=== PATIENT | female | born 1980 | race Hispanic/Latino ===

== ENCOUNTER 2022-06-10 12:52 | Emergency (ER) | payer OTHER ==
--- OUTSIDE RECORDS SUMMARY | 2022-06-10 12:55 | XMS REPORT | Continuity of Care Document ---
:[address] [facility] t Address [address] [place] [address] Care Team Providers Name Role Phone Anai Tapia MD Attending Clinician Provider, [facility] Attending Clinician Unavailable Mary Morejon PA-C Attending Clinician MARY MOREJON Attending Clinician Unavailable ESTEBAN Attending Clinician Unavailable ESTEBAN Admitting Clinician Unavailable Payers Payer Name Policy Type Policy Number Effective Date Expiration Date Jhonatan cid [place] [employer] [id number] 2020 HEALTH 00:00:00 Problems Condition Condition Condition Status Onset Resolution Last Treating Co mments Source Name Details Category Date Date Treatment Clinician Date No known No known Disease Unive rs active active ity of problems problems [facility] Allergies, Adverse Reactions, Alerts Allergy Allergy Status Severity Reaction(s) Onset Inactive Treating Comm ents Source Name Type Date Date Clinician Penicill Propensi Active Anaphylaxis 2019-06 U nivers ins ty to 06-27 ity of adverse 00:00: [place] reaction 00 Medical s Branch PENICILL Drug Active Anaphylaxis 2019-06 Uni vers INS Class 06-27 ity of 00:00: [place] 00 Medical Branch NO KNOWN Drug Active Univers ALLERGIE Class ity of S [facility] Social History Social Habit Start Date Stop Date Quantity Comments Source Exposure to SARS-CoV-2 Not sure [facility] [place] [facility] [place] [facility] Sex Assigned At Uni versity [facility] Smoking Status Start Date Stop Date Source Unknown if ever smoked [facility] Medications Ordered Filled Start Stop Current Ordering Indication Dosage Frequency Signature Comments Components Source Medication Medication Date Date Medication? Clinician (SIG) Name Name levoFLOXaci 2019-06 500mg 500 mg, U nivers n 1-09 11-09 Oral, ity of (LEVAQUIN) 06:15: 05:23 ONCE, 1 [place] as tablet 500 00 :00 dose, Mon Medi agatha mg 04/30/20 at Branch 0015, BELINDA
Re ason for Anti-Infec tive: Documented Infection< br>Documen ave Infection Site: Urine
D uration of Therapy: Other (see Comments) ketorolac 2019-06- No 30mg 30 mg, Unive rs (TORADOL) 06-30 Slow IV ity of injection 06:15: 05:15 Push, [place] 30 mg 00 :00 ONCE, 1 Medical dose, [facility] Branch 04/30/20 at 0015, Routine
produce team member approving Restricted medication : ANAI TAPIA metoclopram 2019-06- No 10mg 10 mg, Uni vers jie HCl 06-30 Slow IV ity of (REGLAN) 06:15: 05:16 Push, [place] injection 00 :00 ONCE, 1 Medical 10 mg dose, [facility] 04/30/20 at 0015, BELINDA acetaminoph 2019-06 2020- No 1000mg 1,000 mg, Univers en 06-30 Oral, ity of (TYLENOL) 05:30: 04:33 ONCE, 1 [place] tablet 00 :00 dose, [facility] 1,000 mg 04/29/20 at [facility] h 2330, BELINDA ondansetron 2019-06 2020- No 4mg 4 mg, Slow Univers (ZOFRAN 06-30 IV Push, ity of (PF)) 05:30: 04:29 ONCE, 1 [place] injection 4 00 :00 dose, [facility] ical mg 04/29/20 at Branch 2330, BELINDA NaCl 0.9% 2019-06 Yes 1000mL at 999 Univ ers (NS) IV 1-09 mL/hr, ity of infusion 04:45: Intravenou Wilber as 1,000 mL 00 s, Medical CONTINUOUS Branch , Starting 04/29/20 at 2245, Until Discontinu ed, Routine levoFLOXaci 2019-06 Yes [id number] 500mg Take 1 Univers n 1-08 tablet by ity of (LEVAQUIN) 00:00: mouth [place] 500 mg 00 every 24 Medical tablet (twenty-fo Branch ur) hours. ibuprofen 2019-06 Yes [id number] 800mg Take 1 Univers 800 mg 1-08 tablet by ity of tablet 00:00: mouth [place] 00 every 8 Medical (eight) Branch hours as needed for Pain (scale 4-6) or Temp > 38.5 C. No known No Univers medications ity of [facility] Vital Signs Vital Name Observation Time Observation Value Comments Source Systolic blood 2020-04-30 06:10:00 96 mm[Hg] Univer sity of pressure [facility] Branch Diastolic blood 2020-04-30 06:10:00 61 mm[Hg] Unive rsity of pressure [facility] Heart rate 2020-04-30 06:10:00 69 /min Universi ty of [facility] Respiratory rate 2020-04-30 06:10:00 19 /min Univ ersity of [facility] Oxygen saturation in 2020-04-30 06:10:00 98 /min University of Arterial blood by [facility] Pulse oximetry Branch Body temperature 2020-04-30 05:18:00 37.33 Miri Univ ersity of [facility] Body height 2020-04-30 02:39:00 165.1 cm Universi ty of [facility] Body weight 2020-04-30 02:39:00 58.968 kg Universi ty of [facility] Branch BMI 2020-04-30 02:39:00 21.63 kg/m2 Universi ty of [facility] Branch Systolic blood 2020-04-28 01:41:00 107 mm[Hg] Univer sity of [facility] Diastolic blood 2020-04-28 01:41:00 64 mm[Hg] Unive rsity of [facility] Heart rate 2020-04-28 01:41:00 93 /min Universi ty of [facility] Body temperature 2020-04-28 01:41:00 38 Miri Univ ersity of [facility] Branch Respiratory rate 2020-04-28 01:41:00 17 /min Univ ersity of [facility] Body height 2020-04-28 01:41:00 165.1 cm Universi ty of [facility] Body weight 2020-04-28 01:41:00 58.968 kg Universi ty of [facility] Branch BMI 2020-04-28 01:41:00 21.63 kg/m2 Universi ty of [facility] Oxygen saturation in 2020-04-28 01:41:00 96 /min University of Arterial blood by [facility] Pulse oximetry Branch Procedures Procedure Date / Time Performed Performing Clinician Sourc e URINALYSIS 2020-04-30 04:18:00 Anai Tapia [facility] COMP. METABOLIC PANEL 2020-04-30 04:16:00 Anai Tapia [facility] ([id number]) [facility] CBC WITH DIFF 2020-04-30 04:16:00 Anai Tapia [facility] POCT FLU A AND B 2020-04-28 01:48:00 Darleen [facility] (MOLECULAR) [facility] COVID-19 (MOLECULAR 2020-04-28 01:45:00 Darleen [facility] TESTING [facility] NUCLEIC ACID AMPLIFICATION) POCT GRP A STREP 2020-04-28 01:42:00 Darleen [facility] (MOLECULAR) [facility] Encounters Start End Encounter Admission Attending Care Care Encounter Source Date/Time Date/Time Type Type Clinicians Facility Department ID 2021-04-20 Emergency [facility] [id number] Univers 03:57:04 [place] [facility] 2020-04-29 2020-04-30 Emergency [facility] [id number] Univers 20:43:00 00:21:00 Anai Alicia [id number] ity of [place] [id number] [facility] [id number] [facility] 084 Branch 2020-04-27 2020-04-27 Urgent Provider, [place] [facility] [id number] Univers 19:40:32 19:58:01 Care Darleen [facility] [id number] ity [facility] [id number] [facility] [id number] Ne dical nal [address] Branch [address] 2020-04-27 2020-04-27 Outpatient R DARLEEN [facility] [id number] Univers 19:40:00 19:40:00 [facility] 2020-01-09 2020-01-09 Outpatient FERGUSON_ROBI GRIGGS [id number] [place] 12:29:00 12:29:00 [place] [id number] da [facility] Program Results Test Description Test Time Test Comments Results Result Comments Source COMP. METABOLIC PANEL (69935) 2020-04-30 05:20:00 Test Item Value Reference Range Interpretation Comme nts NA (test code = 6046607799) 134 mmol/L 135-145 L K (test code = 0836980146) 3.9 mmol/L 3.5-5 CL (test code = 0731873358) 101 mmol/L 98-108 CO2 TOTAL (test code = 7042825234) 25 mmol/L 23-31 AGAP (test code = 3009206912) 2-16 BUN (test code = 6494866163) 17 mg/dL 7-23 GLUCOSE (test code = 9197226507) 87 mg/dL 70-110 CREATININE (test code = 0.66 mg/dL 0.5-1.04 0260745727) TOTAL BILI (test code = 0.5 mg/dL 0.1-1.2 1869270537) CALCIUM (test code = 3657143717) 9.5 mg/dL 8.6-10.6 T PROTEIN (test code = 9007081457) 7.6 g/dL 6.3-8.2 ALBUMIN (test code = 5234269826) 4.5 g/dL 3.5-5 ALK PHOS (test code = 9103356927) 57 U/L 34-122 ALTv (test code = 1742-6) 7 U/L 5-35 AST(SGOT) (test code = 0312489082) 18 U/L 13-40 eGFR Calculation (Non- mL/min/1.73m2 [place]ayan) (test code = 2490782936) eGFR Calculation ( mL/min/1.73m2 [place]) (test code = 7813037644) ELSA (test code = ELSA) Association of Glomerular Filtration Rate (GFR) and Staging of Kidney Disease* + +-------- + ------+| GFR (mL/min/1.73 m2) ?| With Kidney Damage ?| ?Without Kidney Damage+ +-- + +| ?>90 ?| ?Stage one ?| ? Normal ?+ +------- + -------+| ?60-89 ?| ?Stage two ?| ? Decreased GFR ? + +-------- + ------+| ?30-59 ?| ?Stage three ?| ? Stage three ? + +-------- + ------+| ?15-29 ?| ?Stage four ? | ? Stage four ?+ +------- + -------+| ?<15 (or dialysis) ? ?| ?Stage five ? | ? Stage five ?+ +------- + -------+ *Each stage assumes the associated GFR level has been in effect for at least three months. ?Stages 1 to 5, with or without kidney disease, indicate chronic kidney disease. Notes: Determination of stages one and two (with eGFR >59mL/min/1.73 m2) requires estimation of kidney damage for at least three months as defined by structural or functional abnormalities of the kidney, manifested by either:Pathological abnormalities or Markers of kidney damage (including abnormalities in the composition of the blood or urine or abnormalities in imaging tests). Lab Interpretation (test code = Abnormal 62654-3) [facility] Test Item Value Reference Range Interpretation Comments APPEARANCE (test code = Hazy Clear A 6225388628) COLOR (test code = Yellow Yellow 7434952793) PH (test code = 4.8-8.0 8673586818) SP GRAVITY (test code = 1.003-1.030 7051148635) GLU U QUAL (test code = Normal Normal 6010798330) BLOOD (test code = 2+ Negative A 9644886407) KETONES (test code = Negative Negative 5073979002) PROTEIN (test code = Negative Negative 2887-8) UROBILIN (test code = 2.0 mg/dL Normal A 1531961669) BILIRUBIN (test code = Negative Negative 3277817015) NITRITE (test code = Negative Negative 3606511689) LEUK HAIR (test code = 75/uL Negative A 2736998127) RBC/HPF (test code = See_Comment H [Autom ated message] 1431903162) The system [employer] generated this result transmit ave reference range : 0 - 3 HPF. The refe rence range was not u sed to interpret th is result as normal/abnormal . WBC/HPF (test code = See_Comment H [Autom ated message] 7113699941) The system whic h generated this result transmit ave reference range : 0 - 5 HPF. The refe rence range was not u sed to interpret th is result as normal/abnormal . BACTERIA (test code = Many Negative A 1316484964) MUCOUS (test code = Moderate Negative LPF A 2702252660) SQ EPITH (test code = HPF 5570188464) Lab Interpretation (test Abnormal code = 87972-2) [facility] WITH [id number] 04:40:00 Test Item Value Reference Range Interpretation Comments WBC (test code = See_Comment [Automated 6690-2) message] The sy stem which generated this result transmitted reference range : 4.30 - 11.10 10*3/?L. The reference range was not used to interpret this result as normal/abnormal . RBC (test code = See_Comment [Automated 789-8) message] The sy stem which generated this result transmitted reference range : 3.93 - 5.25 10*6/?L. The reference range was not used to interpret this result as normal/abnormal . HGB (test code = 12.1 g/dL 11.6-15 718-7) HCT (test code = 36.7 % 35.7-45.2 4544-3) MCV (test code = 88.4 fL 80.6-95.5 787-2) MCH (test code = 29.2 pg 25.9-32.8 785-6) MCHC (test code = 33.0 g/dL 31.6-35.1 786-4) RDW-SD (test code = 38.7 fL 39-49.9 L 85023-1) RDW-CV (test code = 11.9 % 12-15.5 L 788-0) PLT (test code = See_Comment H [Automated 777-3) message] The sy stem which generated this result transmitted reference range : 166 - 358 10*3/ ?L. The reference r daniel was not used to interpret this result as normal/abnormal . MPV (test code = 10.0 fL 9.5-12.9 62397-0) NRBC/100 WBC (test See_Comment [Automat ed code = 9731247585) message] The system which generated this result transmitted reference range : 0.0 - 10.0 /100 WBCs. The refer ence range was not u sed to interpret th is result as normal/abnormal . NRBC x10^3 (test code <0.01 See_Comment [Auto mated = 1718482653) message] The s ystem which generated this result transmitted reference range : 10*3/?L. The reference range was not used to interpret this result as normal/abnormal . GRAN MAT (NEUT) % 65.5 % (test code = 770-8) IMM GRAN % (test code 0.30 % = 2759282673) LYMPH % (test code = 22.2 % 736-9) MONO % (test code = 7.8 % 5905-5) EOS % (test code = 3.5 % 713-8) BASO % (test code = 0.7 % 706-2) GRAN MAT x10^3(ANC) 5.86 10*3/uL 1.88-7.09 (test code = 4307704326) IMM GRAN x10^3 (test 0.03 10*3/uL 0-0.06 code = 4137612549) LYMPH x10^3 (test code 1.99 10*3/uL 1.32-3.29 = 731-0) MONO x10^3 (test code 0.70 10*3/uL 0.33-0.92 = 742-7) EOS x10^3 (test code = 0.31 10*3/uL 0.03-0.39 711-2) BASO x10^3 (test code 0.06 10*3/uL 0.01-0.07 = 704-7) Lab Interpretation Abnormal (test code = 83488-1) [facility] NUCLEIC ACID AMPLIFICATION)2020-04-29 10:44:00 Test Item Value Reference Range Interpretation Comments SARS-CoV-2 NAAT (test Not Detected Not Detected code = 34779-9) ELSA (test code = ELSA) [employer] SARS-CoV-2 Assay is a nucleic acid amplification test intended for the qualitative detection of RNA from SARS-CoV-2 from nasopharyngeal (MIRROR [employer]ICATION SUPERVISOR) specimens. ?It is used under Emergency Use Authorization (EUA) by FDA. A positive result is indicative of the presence of SARS-CoV-2 RNA. ?Clinical correlation with patient history and other diagnostic information is necessary to determine patient infection status. A negative (Not Detected) result does not preclude SARS-CoV-2 infection. ?Clinical correlation with patient history and other diagnostic information should be used in patient management decisions. Invalid: Unable to generate a valid test result on this specimen. ?Please submit a new specimen for repeat testing if clinically indicated. Lab Interpretation Normal (test code = 71087-7) [facility] FLU A AND B (MOLECULAR)2020-04-28 01:58:00 Test Item Value Reference Range Interpretation Comments POCT INFLUENZA A (test code = negative Negative - Negative 3840) POCT INFLUENZA B (test code = negative Negative - Negative 3841) Lab Interpretation (test code = Normal 45757-2) [facility] GRP A STREP (MOLECULAR)2020-04-28 01:52:00 Test Item Value Reference Range Interpretation Comments POCT GP A STREP (test code = negative Negative - Negative 67676-4) Lab Interpretation (test code = Normal 78601-5) [facility]"
--- NOTE | 2022-06-10 13:56 | RAD REPORT ---
EXAM DESCRIPTION: RAD - Foot Right 3 View - 06/10/2022 1:45 pm CLINICAL HISTORY: PAIN COMPARISON: No comparisons FINDINGS: Slight fracture is seen involving the distal aspect of the proximal phalanx of the second toe. Mild surrounding soft tissue swelling.
--- NOTE | 2022-06-10 14:12 | ER ---
Nurse's Notes [facility] Name: Hilaria Mendosa Age: 42 yrs Sex: Female : 1980 Arrival Date: 06/10/2022 Time: 13:07 Bed 15 Private MD: Diagnosis: Nondisplaced fracture of proximal phalanx of right lesser toe(s), initial encounter for closed fracture Presentation: 06/10 13:20 Chief complaint: Patient states: stubbed her 2nd toe on right foot today , hit on a iw granite step. Coronavirus screen: At this time, the client does not indicate any symptoms associated with coronavirus-19. Ebola Screen: Patient negative for fever greater than or equal to 101.5 degrees Fahrenheit, and additional compatible Ebola Virus Disease symptoms Patient denies exposure to infectious person. Patient denies travel to an Ebola-affected area in the 21 days before illness onset. No symptoms or risks identified at this time. Initial Sepsis Screen: Does the patient meet any 2 criteria? No. Patient's initial sepsis screen is negative. Does the patient have a suspected source of infection? No. Patient's initial sepsis screen is negative. Risk Assessment: Do you want to hurt yourself or someone else? Patient reports no desire to harm self or others. Onset of symptoms was June 10, 2022. 13:20 Method Of Arrival: Ambulatory iw 13:20 Acuity: BHANU 5 iw 13:20 Acuity: BHANU 4 iw Triage Assessment: 13:39 General: Appears in no apparent distress. comfortable, Behavior is calm, cooperative, bp appropriate for age. Pain: Complains of pain in right foot. EENT: No deficits noted. Neuro: No deficits noted. Cardiovascular: No deficits noted. Respiratory: No deficits noted. GI: No signs and/or symptoms were reported involving the gastrointestinal system. : No signs and/or symptoms were reported regarding the genitourinary system. Derm: No deficits noted. Musculoskeletal: Reports pain in right foot. Historical: - Allergies: 13:22 PENICILLINS; iw - Home Meds: 13:22 None [Active]; iw - PMHx: 13:22 None; iw - PSHx: 13:22 section; ex lap; iw - Immunization history:: Adult Immunizations up to date. - Social history:: Smoking status: Patient denies any tobacco usage or history of. Screenin:41 [facility] ED Fall Risk Assessment (Adult) History of falling in the last 3 months, bp including since admission No falls in past 3 months (0 pts). Humpty Dumpty Scale Fall Assessment Tool (age< 18yrs) Age 13 years and above (1 pt). Abuse screen: Denies threats or abuse. Denies injuries from another. Nutritional screening: No deficits noted. Tuberculosis screening: No symptoms or risk factors identified. Fall Risk Assessment: 13:41 General: SEE TRIAGE NOTE. bp 14:36 Reassessment: PT DC HOME AMBULATORY. bp Vital Signs: 13:20 BP 107 / 64; Pulse 84; Resp 16; Temp 98.1; Pulse Ox 100% on R/A; iw ED Course: 13:07 Patient arrived in ED. jm9 13:10 Shakira Andres FNP-C is PHCP. kb 13:10 Dinesh Ball DO is Attending Physician. kb 13:22 Triage completed. iw 13:23 Arm band placed on. iw 13:24 Avery Abbasi, RN is Primary Nurse. bp 13:42 Patient has correct armband on for positive identification. Bed in low position. Call bp light in reach. Side rails up X2. 13:47 Foot Right 3 View XRAY In Process Unspecified. EDMS 14:36 No provider procedures requiring assistance completed. Patient did not have IV access bp during this emergency room visit. Saud tape right second toe. Administered Medications: No medications were administered Medication: 13:41 VIS not applicable for this client. bp Outcome: 14:12 Discharge ordered by MD. kb 14:36 Discharged to home ambulatory. bp 14:36 Condition: stable 14:36 Discharge instructions given to patient, Instructed on discharge instructions, follow up and referral plans. Demonstrated understanding of instructions, follow-up care. 14:37 Patient left the ED. bp Signatures: Dispatcher [employer] EDMS Shakira Andres FNP-C FNP-Ckb Williams, Irene RN Avery Camacho, RN RN Luh Aleman jm9 Corrections: (The following items were deleted from the chart) 13:23 13:20 Pulse 84bpm; Resp 16bpm; Pulse Ox 100% RA; Temp 98.1F; iw iw
--- NOTE | 2022-06-10 14:12 | EDPHYS ---
Physician Documentation [facility] Name: Hilaria Mendosa Age: 42 yrs Sex: Female : 1980 Arrival Date: 06/10/2022 Time: 13:07 Bed 15 Private MD: ED Physician Dinesh Ball HPI: 06/10 14:10 This 42 yrs old Female presents to ER via Ambulatory with complaints of Toe kb Injury. 14:10 The patient presents with an abrasion, an injury, pain, swelling, tenderness. The kb complaints affect the right second toe. Context: The problem was sustained at home, resulted from the patient kicking, step, the patient can fully bear weight, the patient is able to ambulate. Onset: The symptoms/episode began/occurred just prior to arrival. Modifying factors: The symptoms are alleviated by nothing, the symptoms are aggravated by movement. Associated signs and symptoms: Pertinent positives: swelling, Pertinent negatives: calf tenderness, fever, nausea, numbness, rash, tingling, vomiting, warmth, weakness. Severity of symptoms: At their worst the symptoms were mild, in the emergency department the symptoms are unchanged. The patient has not experienced similar symptoms in the past. The patient has not recently seen a physician. Historical: - Allergies: 13:22 PENICILLINS; iw - Home Meds: 13:22 None [Active]; iw - PMHx: 13:22 None; iw - PSHx: 13:22 section; ex lap; iw - Immunization history:: Adult Immunizations up to date. - Social history:: Smoking status: Patient denies any tobacco usage or history of. ROS: 14:08 Constitutional: Negative for fever, chills, and weight loss. kb 14:08 MS/extremity: Positive for abrasion, erythema, pain, swelling, tenderness, of the right second toe. 14:08 All other systems are negative. Exam: 14:08 Constitutional: This is a well developed, well nourished patient who is awake, alert, kb and in no acute distress. Head/Face: Normocephalic, atraumatic. ENT: Moist Mucous membranes Cardiovascular: Regular rate and rhythm with a normal S1 and S2. No gallops, murmurs, or rubs. No pulse deficits. Respiratory: Respirations even and unlabored. No increased work of breathing. Talking in full sentences Abdomen/GI: Soft, non-tender. No distention Skin: Warm, dry with normal turgor. Normal color. Neuro: Awake and alert, GCS 15, oriented to person, place, time, and situation. Moves all extremities. Normal gait. Psych: Awake, alert, with orientation to person, place and time. Behavior, mood, and affect are within normal limits. 14:08 Musculoskeletal/extremity: Extremities: grossly normal except: noted in the right second toe: abrasion, erythema, pain, swelling, tenderness, ROM: limited active range of motion due to pain, in the right second toe, Circulation is intact in all extremities. Sensation intact. Weight bearing: able to fully bear weight. Vital Signs: 13:20 BP 107 / 64; Pulse 84; Resp 16; Temp 98.1; Pulse Ox 100% on R/A; iw MDM: 13:10 Patient medically screened. kb 14:10 Data reviewed: vital signs, nurses notes. Data interpreted: Pulse oximetry: on room air kb is 100 %. Interpretation: normal. Counseling: I had a detailed discussion with the patient and/or guardian regarding: the historical points, exam findings, and any diagnostic results supporting the discharge/admit diagnosis, radiology results, the need for outpatient follow up, a orthopedic surgeon, to return to the emergency department if symptoms worsen or persist or if there are any questions or concerns that arise at home. 06/10 13:15 Order name: Foot Right 3 View XRAY; Complete Time: 14:00 kb 06/10 14:01 Order name: [facility]. Order: to tape ; Complete Time: 14:27 kb Administered Medications: No medications were administered Disposition: 16:19 Co-signature as Attending Physician, Dinesh MEHTA was immediately available onsite ms3 in the emergency department for consultation in the care of the patient. Disposition Summary: 06/10/22 14:12 Discharge Ordered Location: Home Condition: Stable Diagnosis - Nondisplaced fracture of proximal phalanx of right lesser toe(s), initial encounter kb for closed fracture Followup: kb - With: Emergency Department - When: As needed - Reason: Worsening of condition Followup: kb - With: Private Physician - When: 2 - 3 days - Reason: Recheck today's complaints, Continuance of care, Re-evaluation by your physician Discharge Instructions: - Discharge Summary Sheet kb - Toe Fracture, [id number] kb Forms: - Medication Reconciliation Form kb - Thank You Letter kb - Work release form kb - Antibiotic Education kb - Prescription Opioid Use kb Signatures: Dispatcher [employer] EDShakira Curran, UVALDOC DWAYNE-Carey Galicia, RN Avery Camacho RN RN bp Sims, Marcus, DO ms3
[2022-06-10 14:42] VITALS: BP 107/64; TEMP 98.1; O2SAT 100
== END 2022-06-10 14:37 | disposition home or self-care (01) ==
LOC: ER 12:52
DX: S92.514A Nondisplaced fracture of proximal phalanx of right lesser toe(s), initial encounter for closed fracture (principal); Z88.0 Allergy status to penicillin
CPT/HCPCS: 99283

== ENCOUNTER 2022-08-19 22:16 | Emergency (ER) | payer OTHER ==
--- OUTSIDE RECORDS SUMMARY | 2022-08-19 22:19 | XMS REPORT | Continuity of Care Document ---
:1980 Author Organization [facility] Address [address] [facility] [address] [place] [address] Care Team Providers Name Role Phone Anai Tapia MD Attending Clinician Provider, [facility] Attending Clinician Unavailable Mary Morejon PA-C Attending Clinician MARY MOREJON Attending Clinician Unavailable ESTEBAN Attending Clinician Unavailable MARIELOS CARRILLO Attending Clinician Unavailable ESTEBAN Admitting Clinician Unavailable MARIELOS CARRILLO Admitting Clinician Unavailable Payers Payer Name Policy Type Policy Number Effective Date Expiration Date Jhonatan [employer] [id number] 2020 HEALTH 00:00:00 Problems Condition Condition Condition Status Onset Resolution Last Treating Co mments Source Name Details Category Date Date Treatment Clinician Date No known No known Disease Unive rs active active ity of problems problems [facility] Allergies, Adverse Reactions, Alerts Allergy Allergy Status Severity Reaction(s) Onset Inactive Treating Comm ents Source Name Type Date Date Clinician Penicill Propensi Active Anaphylaxis 2019-06 U nivers ins ty to 06-27 ity of adverse 00:00: [place] reaction 00 Medical s Branch PENICILL Drug Active Anaphylaxis 2019-06 Uni vers INS Class 06 ity of 00:00: [place] 00 Medical Branch NO KNOWN Drug Active Univers ALLERGIE Class ity of S [facility] Social History Social Habit Start Date Stop Date Quantity Comments Source Exposure to SARS-CoV-2 Not sure [facility] Sex Assigned At Uni versity [facility] [place] Smoking Status Start Date Stop Date Source Unknown if ever smoked Universit y [facility] Medications Ordered Filled Start Stop Current Ordering Indication Dosage Frequency Signature Comments Components Source Medication Medication Date Date Medication? Clinician (SIG) Name Name levoFLOXaci 2020-1 2020- No 500mg 500 mg, U nivers n 06-30 Oral, ity of (LEVAQUIN) 06:15: 05:23 ONCE, [...] mg 00 :00 ONCE, 1 Medical dose, [facility] 04/30/20 at 0015, Routine
production team member approving Restricted medication : ANAI ATPIA metoclopram 2019-06- No 10mg 10 mg, Uni vers jie HCl 06-30 Slow IV ity of (REGLAN) 06:15: 05:16 Push, [place] injection 00 :00 ONCE, 1 Medical 10 mg dose, [facility] 04/30/20 at 0015, BELINDA acetaminoph 2019-06 2020- No 1000mg 1,000 mg, Univers en 06-30 Oral, ity of (TYLENOL) 05:30: 04:33 ONCE, 1 [place] tablet 00 :00 dose, [facility] 1,000 mg 04/29/20 at [facility] h 2330, BELINDA ondansetron 2019-06 2020- No [...] Until Discontinu ed, Routine levoFLOXaci 2019-06 Yes [id number] 500mg Take 1 Univers n 1-08 tablet by ity of (LEVAQUIN) 00:00: mouth [place] 500 mg 00 every 24 Medical tablet (twenty-fo Branch ur) hours. ibuprofen 2019- Yes [id number] 800mg Take 1 Univers 800 mg 1-08 tablet by ity of tablet 00:00: mouth [place] 00 every 8 Medical (eight) Branch hours as needed for Pain (scale 4-6) or Temp > 38.5 C. No known No Univers medications ity of [facility] Vital Signs Vital Name Observation Time Observation Value Comments Source Systolic blood 2020-04-30 06:10:00 96 mm[Hg] Univer sity of pressure [facility] Diastolic blood 2020-04-30 06:10:00 61 mm[Hg] Unive rsity of [facility] Heart rate 2020-04-30 06:10:00 69 /min Universi ty of [facility] Respiratory rate 2020-04-30 06:10:00 19 /min Univ ersity [facility] Oxygen saturation in 2020-04-30 06:10:00 98 /min University Arterial blood by [facility] Pulse oximetry Branch Body temperature 2020-04-30 05:18:00 37.33 Miri Univ ersity of [facility] Body height 2020-04-30 02:39:00 165.1 cm Universi ty of [facility] Body weight 2020-04-30 02:39:00 58.968 kg Universi ty of [facility] BMI 2020-04-30 02:39:00 21.63 kg/m2 Universi ty of [facility] Systolic blood 2020-04-28 01:41:00 107 mm[Hg] Univer sity of [facility] Diastolic blood 2020-04-28 01:41:00 64 mm[Hg] Unive rsity of [facility] Heart rate 2020-04-28 01:41:00 93 /min Universi ty of [facility] Body temperature 2020-04-28 01:41:00 38 Miri Univ ersity of [facility] Respiratory rate 2020-04-28 01:41:00 17 /min Univ ersity of [facility] Body height 2020-04-28 01:41:00 165.1 cm Universi ty of [facility] Body weight 2020-04-28 01:41:00 58.968 kg Universi ty of [facility] BMI 2020-04-28 01:41:00 21.63 kg/m2 [facility] Oxygen saturation in 2020-04-28 01:41:00 96 /min University Arterial blood by [facility] Pulse oximetry Branch Procedures Procedure Date / Time Performed Performing Clinician Sourrivka e URINALYSIS 2020-04-30 04:18:00 Anai Tapia [facility] COMP. METABOLIC PANEL 2020-04-30 04:16:00 Anai Tapia [facility] ([id number]) [facility] CBC WITH DIFF 2020-04-30 04:16:00 Anai Tapia [facility] POCT FLU A AND B 2020-04-28 01:48:00 Darleen [facility] (MOLECULAR) [facility] COVID-19 (MOLECULAR 2020-04-28 01:45:00 Mary Morejon [facility] TESTING [facility] NUCLEIC ACID AMPLIFICATION) POCT GRP A STREP 2020-04-28 01:42:00 Darleen [facility] (MOLECULAR) [facility] Encounters Start End Encounter Admission Attending Care Care Encounter Source Date/Time Date/Time Type Type Clinicians Facility Department ID 2021-04-20 Emergency [facility] [id number] [facility] 2020-04-29 2020-04-30 Emergency [facility] [id number] Univers 20:43:00 00:21:00 Anai Alicia [id number] ity of [place] [id number] [facility] [id number] [facility] 084 Branch 2020-04-27 2020-04-27 Urgent Provider, [facility] [id number] Univers 19:40:32 19:58:01 Care Mary Morejon [facility] [id number] ity of [place] [id number] [facility] as [id number] [facility] 2020-04-27 2020-04-27 Outpatient R DARLEEN [facility] [id number] Univers 19:40:00 19:40:00 MARY jackson [facility] 2020-01-09 2020-01-09 Outpatient FADY GRIGGS [id number] [place] 12:29:00 12:29:00 [place] [id number] da [facility] 2014-08-22 2014-08-22 bJ CARRILLO [facility] [id number] [place] 03:07:00 04:04:00 MAR[facility]OS [facility] Results Test Description Test Time Test Comments Results Result Comments Source COMP. METABOLIC PANEL (19703) 2020-04-30 05:20:00 Test Item Value Reference Range Interpretation Comme nts NA (test code = 1009327770) 134 mmol/L 135-145 L K (test code = 4124745394) 3.9 mmol/L 3.5-5 CL (test code = 0122818704) 101 mmol/L 98-108 CO2 TOTAL (test code = 6402013927) 25 mmol/L 23-31 AGAP (test code = 0935676075) 2-16 BUN (test code = 3951244163) 17 mg/dL 7-23 GLUCOSE (test code = 2393846114) 87 mg/dL 70-110 CREATININE (test code = 0.66 mg/dL 0.5-1.04 3790849606) TOTAL BILI (test code = 0.5 mg/dL 0.1-1.3 2739834957) CALCIUM (test code = 7594270990) 9.5 mg/dL 8.6-10.6 T PROTEIN (test code = 9523001051) 7.6 g/dL 6.3-8.2 ALBUMIN (test code = 5394946675) 4.5 g/dL 3.5-5 ALK PHOS (test code = 7064904952) 57 U/L 34-122 ALTv (test code = 1742-6) 7 U/L 5-35 AST(SGOT) (test code = 0593385869) 18 U/L 13-40 eGFR Calculation (Non- mL/min/1.73m2 [place]) (test code = 0907336083) eGFR Calculation ( mL/min/1.73m2 [place]) (test code = 9520113023) ELSA (test code = ELSA) Association of [...] tests). Lab Interpretation (test code = Abnormal 41414-9) [facility]00 Test Item Value Reference Range Interpretation Comments APPEARANCE (test code = Hazy Clear A 3960211833) COLOR (test code = Yellow Yellow 1386075521) PH (test code = 4.8-8.0 2028119324) SP GRAVITY (test code = 1.003-1.030 6835759814) GLU U QUAL (test code = Normal Normal 6670705732) BLOOD (test code = 2+ Negative A 9497615081) KETONES (test code = Negative Negative 6889887133) PROTEIN (test code = Negative Negative 2887-8) UROBILIN (test code = 2.0 mg/dL Normal A 7807861010) BILIRUBIN (test code = Negative Negative 8591872179) NITRITE (test code = Negative Negative 7478727606) LEUK HAIR (test code = 75/uL Negative A 3248054935) RBC/HPF (test code = See_Comment H [Autom ated message] 2573762908) The system [employer] generated this result transmit ave reference range : 0 - 3 HPF. The refe rence range was not u sed to interpret th is result as normal/abnormal . WBC/HPF (test code = See_Comment H [Autom ated message] 3023857300) The system [employer] generated this result transmit ave reference range : 0 - 5 HPF. The refe rence range was not u sed to interpret th is result as normal/abnormal . BACTERIA (test code = Many Negative A 2309601013) MUCOUS (test code = Moderate Negative LPF A 7612072579) SQ EPITH (test code = HPF 6750020539) Lab Interpretation (test Abnormal code = 87282-7) [facility] WITH [id number] 04:40:00 Test Item Value Reference Range Interpretation Comments WBC (test code = See_Comment [Automated 7690-2) message] The sy stem which generated this [...] (test code = 38.7 fL 39-49.9 L 01016-0) RDW-CV (test code = 11.9 % 12-15.5 L 788-0) PLT (test code = See_Comment H [Automated 777-3) message] The sy stem which generated this result transmitted reference range : 166 - 358 10*3/ ?L. The reference r daniel was not used to interpret this result as normal/abnormal . MPV (test code = 10.0 fL 9.5-12.9 38012-0) NRBC/100 WBC (test See_Comment [Automat ed code = 0080945404) message] The system which generated this result transmitted reference range : 0.0 - 10.0 /100 WBCs. The refer ence range was not u sed to interpret th is result as normal/abnormal . NRBC x10^3 (test code <0.01 See_Comment [Auto mated = 3813361130) message] The s ystem which generated this result transmitted reference range : 10*3/?L. The reference range was not used to interpret this result as normal/abnormal . GRAN MAT (NEUT) % 65.5 % (test code = 770-8) IMM GRAN % (test code 0.30 % = 6781991495) LYMPH % (test code = 22.2 % 736-9) MONO % (test code = 7.8 % 5905-5) EOS % (test code = 3.5 % 713-8) BASO % (test code = 0.7 % 706-2) GRAN MAT x10^3(ANC) 5.86 10*3/uL 1.88-7.09 (test code = 2848656865) IMM GRAN x10^3 (test 0.03 10*3/uL 0-0.06 code = 5013207681) LYMPH x10^3 (test code 1.99 10*3/uL 1.32-3.29 = 731-0) MONO x10^3 (test code 0.70 10*3/uL 0.33-0.92 = 742-7) EOS x10^3 (test code = 0.31 10*3/uL 0.03-0.39 711-2) BASO x10^3 (test code 0.06 10*3/uL 0.01-0.07 = 704-7) Lab Interpretation Abnormal (test code = 01218-3) [facility] NUCLEIC ACID AMPLIFICATION)2020-04-29 10:44:00 Test Item Value Reference Range Interpretation Comments SARS-CoV-2 NAAT (test Not Detected Not Detected code = 56419-9) ELSA (test code = ELSA) QFPay Aptima SARS-CoV-2 Assay is a nucleic acid amplification test intended for the qualitative detection of RNA from SARS-CoV-2 from nasopharyngeal (SMOOTH PLATER) specimens. ?It is used under Emergency Use [...] indicated. Lab Interpretation Normal (test code = 97771-1) [facility] FLU A AND B (MOLECULAR)2020-04-28 01:58:00 Test Item Value Reference Range Interpretation Comments POCT INFLUENZA A (test code = negative Negative - Negative 3840) POCT INFLUENZA B (test code = negative Negative - Negative 3841) Lab Interpretation (test code = Normal 03100-3) [facility] GRP A STREP (MOLECULAR)2020-04-28 01:52:00 Test Item Value Reference Range Interpretation Comments POCT GP A STREP (test code = negative Negative - Negative 26419-5) Lab Interpretation (test code = Normal 30317-1) [facility]"
[2022-08-19] MEDS ORDERED: BUPIVACAINE 0.5% PF 10 ML VIAL ONE (23:30)
[2022-08-19] MEDS ORDERED: HYDROCODONE/APAP 7.5/325 MG TAB ONE (23:30)
[2022-08-19] MEDS ORDERED: LIDOCAINE 1% W/EPI 1:100,000 50 ML MDV ONE (23:30)
[2022-08-19] MEDS ORDERED: ACETAMINOPHEN 500 MG TAB ONE (23:34)
--- NOTE | 2022-08-20 00:45 | ER ---
Nurse's Notes [facility] Name: Hilaria Mendosa Age: 42 yrs Sex: Female : 1980 Arrival Date: 08/19/2022 Time: 22:21 Bed 12 Private MD: Diagnosis: Laceration without foreign body of lower leg-left Presentation: 08/19 22:31 Chief complaint: Patient states: I fell from a metal chair and cut my left leg open. kd3 Coronavirus screen: Vaccine status: Patient reports being unvaccinated. Ebola Screen: No symptoms or risks identified at this time. Complicating Factors: laceration. Initial Sepsis Screen: Does the patient meet any 2 criteria? No. Patient's initial sepsis screen is negative. Does the patient have a suspected source of infection? No. Patient's initial sepsis screen is negative. Risk Assessment: Do you want to hurt yourself or someone else? Patient reports no desire to harm self or others. Onset of symptoms was August 19, 2022. 22:31 Method Of Arrival: Ambulatory kd3 22:31 Acuity: BHANU 4 kd3 Triage Assessment: 22:33 General: Appears in no apparent distress. Behavior is calm, cooperative. Pain: kd3 Complains of pain in lateral aspect of left calf. Injury Description: Laceration sustained to lateral aspect of left calf. Historical: - Allergies: 22:33 PENICILLINS; kd3 - PSHx: 22:33 section; ex lap; kd3 - Immunization history:: Adult Immunizations up to date. - Social history:: Smoking status: unknown. Screenin/01 01:10 [facility] ED Fall Risk Assessment (Adult) History of falling in the last 3 months, kd3 including since admission No falls in past 3 months (0 pts) Confusion or Disorientation No (0 pts) Intoxicated or Sedated No (0 pts) Impaired Gait No (0 pts) Mobility Assist Device Used No (0 pt) Altered Elimination No (0 pt) Score/Fall Risk Level 0 - 2 = Low Risk Oriented to surroundings. Abuse screen: Denies threats or abuse. Denies injuries from another. Nutritional screening: No deficits noted. Tuberculosis screening: No symptoms or risk factors identified. Assessment: 01:10 Injury Description: Laceration is not bleeding. kd3 01:10 Musculoskeletal: No deficits noted. kd3 Vital Signs: 08/19 22:31 Pulse 91; Resp 19; Temp 98.8(TE); Pulse Ox 100% on R/A; Weight 56.7 kg; Height 5 ft. 3 kd3 in. (160.02 cm); 22:34 BP 94 / 68; kd3 08/20 01:10 BP 102 / 72; Pulse 87; Resp 18; Pulse Ox 100% on R/A; kd3 08/19 22:31 Body Mass Index 22.14 (56.70 kg, 160.02 cm) kd3 ED Course: 08/19 22:21 Patient arrived in ED. jj6 22:22 Aguila Azevedo PA is PHCP. cp 22:22 Jesús Palacios MD is Attending Physician. cp 22:33 Triage completed. kd3 22:34 Arm band placed on. kd3 23:24 Jenna Bianchi, RN is Primary Nurse. kd3 08/20 01:10 Patient has correct armband on for positive identification. kd3 01:10 No provider procedures requiring assistance completed. Patient did not have IV access kd3 during this emergency room visit. 01:37 XRAY Tib Fib LEFT In Process Unspecified. 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 kd3 Outcome: 00:44 Discharge ordered by . cp 01:10 Discharged to home ambulatory. kd3 01:10 Condition: stable 01:10 Discharge instructions given to patient, Instructed on discharge instructions, follow up and referral plans. Demonstrated understanding of instructions, follow-up care. 01:11 Patient left the ED. kd3 Signatures: Dispatcher [employer] EDMS Aguila Azevedo PA PA cp Jeffries, Jennifer jj6 Jenna Bianchi, RN RN kd3
--- NOTE | 2022-08-20 00:45 | EDPHYS ---
Physician Documentation [facility] Name: Hilaria Mendosa Age: 42 yrs Sex: Female : 1980 Arrival Date: 08/19/2022 Time: 22:21 Bed 12 Private MD: ED Physician Jesús Palacios HPI: 08/19 22:40 This 42 yrs old Female presents to ER via Ambulatory with complaints of cp Laceration To Leg. 22:40 The patient has a laceration fall while standing on chair with lower leg injured by cp piece of metal. The laceration(s) is(are) located on the lateral aspect of left lower leg. Onset: The symptoms/episode began/occurred just prior to arrival. Associated signs and symptoms: The patient has no apparent associated signs or symptoms. Historical: - Allergies: 22:33 PENICILLINS; kd3 - PSHx: 22:33 section; ex lap; kd3 - Immunization history:: Adult Immunizations up to date. - Social history:: Smoking status: unknown. ROS: 22:45 Constitutional: Negative for body aches, chills, fever, poor PO intake. cp 22:45 Eyes: Negative for injury, pain, redness, and discharge. cp 22:45 ENT: Negative for drainage from ear(s), ear pain, sore throat. 22:45 Neck: Negative for pain with movement, pain at rest, stiffness. 22:45 Cardiovascular: Negative for chest pain, palpitations. 22:45 Respiratory: Negative for cough, shortness of breath, wheezing. 22:45 Abdomen/GI: Negative for abdominal pain, nausea, vomiting, and diarrhea. 22:45 Back: Negative for pain at rest, pain with movement. 22:45 MS/extremity: Positive for pain, of the left lower leg, Negative for decreased range of motion, deformity, paresthesias. 22:45 Skin: Positive for laceration(s), of the lateral aspect of left lower leg. 22:45 Neuro: Negative for altered mental status, headache, numbness, weakness. 22:45 All other systems are negative. Exam: 22:50 Constitutional: The patient appears in no acute distress, alert, awake, non-toxic, well cp developed, well nourished, uncomfortable. 22:50 Head/Face: Normocephalic, atraumatic. cp 22:50 Neck: ROM/movement: is normal, is supple, without pain, no range of motions limitations. 22:50 Chest/axilla: Inspection: normal. 22:50 Cardiovascular: Rate: normal. 22:50 Respiratory: the patient does not display signs of respiratory distress, Respirations: normal, no use of accessory muscles, no retractions, labored breathing, is not present. 22:50 Abdomen/GI: Inspection: abdomen appears normal. 22:50 Back: pain, is absent, ROM is normal. 22:50 Musculoskeletal/extremity: Extremities: grossly normal except: noted in the lateral aspect of left lower leg: abrasion, laceration, pain, swelling, tenderness, ROM: full active range of motion, in the left knee and left ankle, Pulses: noted to be 2+ in the left dorsalis pedis artery, Sensation intact. 22:50 Neuro: Orientation: to person, place \T\ time. Mentation: is normal, Motor: moves all fours, strength is normal. Vital Signs: 22:31 Pulse 91; Resp 19; Temp 98.8(TE); Pulse Ox 100% on R/A; Weight 56.7 kg; Height 5 ft. 3 kd3 in. (160.02 cm); 22:34 BP 94 / 68; kd3 08/20 01:10 BP 102 / 72; Pulse 87; Resp 18; Pulse Ox 100% on R/A; kd3 08/19 22:31 Body Mass Index 22.14 (56.70 kg, 160.02 cm) kd3 Laceration: 00:42 Wound Repair of 8.5cm ( 3.3in ) subcutaneous laceration to lateral aspect of left lower cp leg. Linear shaped.. Distal neuro/vascular/tendon intact. Anesthesia: Wound infiltrated with 10 mls of Lido/Marcaine. Wound prep: Moderate cleansing by me, Wound irrigation by me. Skin closed with 12 [place] using staple gun. Dressed with Bacitracin, 4x4's, Kerlix. Patient tolerated well. MDM: 08/19 22:34 Patient medically screened. cp 23:00 Differential diagnosis: superficial laceration, tendon injury, vascular injury, open cp fracture. 08/20 00:44 Data reviewed: vital signs, nurses notes, radiologic studies, plain films, and as a cp result, I will discharge patient. 00:44 I considered the following discharge prescriptions or medication management in the cp emergency department Medications were administered in the Emergency Department. See MAR. Independent interpretation of the following test(s) in the Emergency Department X-Ray: My interpretation is left tib/fib negative for fracture. Counseling: I had a detailed discussion with the patient and/or guardian regarding: the historical points, exam findings, and any diagnostic results supporting the discharge/admit diagnosis, radiology results, the need for outpatient follow up, a family practitioner, to return to the emergency department if symptoms worsen or persist or if there are any questions or concerns that arise at home. Response to treatment: the patient's symptoms have markedly improved after treatment, and as a result, I will discharge patient. 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 Disposition Summary: 08/20/22 00:44 Discharge Ordered Location: Home cp Problem: new cp Symptoms: have improved cp Condition: Stable cp Diagnosis - Laceration without foreign body of lower leg - left cp Followup: cp - With: Private Physician - When: 10 - 14 days - Reason: Staple/Suture removal Discharge Instructions: - Discharge Summary Sheet cp - Laceration Care, Adult cp - Sutures, [place], or Adhesive Wound Closure cp Forms: - Medication Reconciliation Form cp - Thank You Letter cp - Antibiotic Education cp - Prescription Opioid Use cp - Work release form kd3 Prescriptions: - Cephalexin 500 mg Oral Capsule - take 1 capsule by ORAL route every 8 hours for 10 days; 30 capsule; Refills: 0, cp Product Selection Permitted - Ibuprofen 800 mg Oral Tablet - take 1 tablet by ORAL route every 8 hours As needed take with food; 30 tablet; cp Refills: 0, Product Selection Permitted Signatures: Dispatcher [employer] EDPA Aguila Azevedo PA PA cp Doucette, Kyli, RN RN kd3 Jesús Palacios MD MD rt
[2022-08-20 01:23] VITALS: TEMP 98.8; O2SAT 100
[2022-08-20 01:27] VITALS: BP 102/72
--- NOTE | 2022-08-20 10:53 | RAD REPORT ---
EXAM DESCRIPTION: RAD - Tib Fib Left - 08/19/2022 11:56 pm CLINICAL HISTORY: 42 years, Female, PAIN COMPARISON: None. FINDINGS: 3 X-ray views of the left tibia and fibula (frontal and lateral views) were performed. No acute bony injuries were demonstrated. No gross articular or soft tissue abnormality is identifi ed. There are no gross intraosseous lesions. No periosteal reaction were seen. IMPRESSION: No acute bony injuries were demonstrated. Electronically signed by: Gomez Tran MD 08/20/2022 12:09 AM SIZER MACHINE Due to temporary technical issues with the PACS/Fluency reporting system, reports are being signed by the in house radiologists without review as a courtesy to insure prompt reporting. The interpreting radiologist is fully responsible for the content of the report.
== END 2022-08-20 01:11 | disposition home or self-care (01) ==
LOC: ER 22:16
PROC: 0HQLXZZ Repair Left Lower Leg Skin, External Approach (ICD-10-PCS; principal; 2022-08-20)
DX: S81.812A Laceration without foreign body, left lower leg, initial encounter (principal)

== ENCOUNTER 2022-08-31 11:35 | Emergency (ER) | payer OTHER ==
--- OUTSIDE RECORDS SUMMARY | 2022-08-31 11:40 | XMS REPORT | Continuity of Care Document ---
:1980 Author Organization [facility] Address [address] [place] [address] Care Team Providers Name Role Phone Anai Tapia MD Attending Clinician Provider, [facility] Attending Clinician Unavailable Mary Morejon PA-C Attending Clinician MARY MOREJON Attending Clinician Unavailable ESTEBAN Attending Clinician Unavailable MARIELOS CARRILLO Attending Clinician Unavailable ESTEBAN Admitting Clinician Unavailable MARIELOS CARRILLO Admitting Clinician Unavailable Payers Payer Name Policy Type Policy Number Effective Date Expiration Date Jhonatan [employer] [id number] 2020 HEALTH 00:00:00 Problems Condition Condition Condition Status Onset Resolution Last Treating Co mments Source Name Details Category Date Date Treatment Clinician Date No known No known Disease Unive rs active active ity of problems problems [facility] Allergies, Adverse Reactions, Alerts Allergy Allergy Status [...] Active Univers ALLERGIE Class ity of S [facility] Social History Social Habit Start Date Stop Date Quantity Comments Source Exposure to SARS-CoV-2 [facility] sure [facility] Sex Assigned At Uni versity [facility] [place] Smoking Status Start Date Stop Date Source Unknown if ever smoked Universit y [facility] Medications Ordered Filled Start Stop Current Ordering [...] mg 00 :00 ONCE, 1 Medical dose, [facility] 04/30/20 at 0015, Routine
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 Restricted medication : ANAI TAPIA metoclopram 2019-06- No 10mg 10 mg, Uni vers jie HCl 06-30 Slow IV ity of (REGLAN) 06:15: 05:16 Push, [place] injection 00 :00 ONCE, 1 Medical 10 mg dose, [facility] 04/30/20 at 0015, BELINDA acetaminoph 2019-06 2020- No 1000mg 1,000 mg, Univers en 06-30 Oral, ity of (TYLENOL) 05:30: 04:33 [place]CE[place] tablet [place] :00 dose, [facility] 1,000 mg 04/29/20 at [facility] h 2330, BELINDA ondansetron 2019-06 2020- [...] Until Discontinu ed, Routine levoFLOXaci 2019-06 Yes [id number] 500mg Take 1 Univers n 1-08 tablet by ity of (LEVAQUIN) 00:00: mouth [place] 500 mg 00 every 24 Medical tablet (twenty-fo Branch ur) hours. ibuprofen 2019- Yes [id number] 800mg Take 1 Univers 800 mg 1-08 tablet by ity of tablet 00:00: mouth [place] 00 every 8 Medical (eight) Branch hours as needed for Pain (scale 4-6) or Temp > 38.5 C. No known No Univers medications ity of [facility] Vital Signs Vital Name Observation Time Observation Value Comments Source Systolic blood 2020-04-30 06:10:00 96 mm[Hg] Univer sity of pressure [facility] Diastolic blood 2020-04-30 06:10:00 61 mm[Hg] Unive rsity of [facility] Heart rate 2020-04-30 06:10:00 69 /min Universi ty of [facility] Respiratory rate 2020-04-30 06:10:00 19 /min Univ ersity [facility] Oxygen saturation in 2020-04-30 06:10:00 98 /min University Arterial blood by [facility] Pulse oximetry Branch Body temperature 2020-04-30 05:18:00 37.33 Miri Univ ersity of [facility] Body height 2020-04-30 02:39:00 165.1 cm Universi ty of [facility] Body weight 2020-04-30 02:39:00 58.968 kg Universi ty of [facility] BMI 2020-04-30 02:39:00 21.63 kg/m2 Universi ty of [facility] Systolic blood 2020-04-28 01:41:00 107 mm[Hg] Univer sity of [facility] Diastolic blood 2020-04-28 01:41:00 64 mm[Hg] Unive rsity of [facility] Heart rate 2020-04-28 01:41:00 93 /min Universi ty of [facility] Body temperature 2020-04-28 01:41:00 38 Miri Univ ersity of [facility] Respiratory rate 2020-04-28 01:41:00 17 /min Univ ersity of [facility] Body height 2020-04-28 01:41:00 165.1 cm Universi ty of [facility] Body weight 2020-04-28 01:41:00 58.968 kg Universi ty of [facility] BMI 2020-04-28 01:41:00 21.63 kg/m2 General acute hospital Oxygen saturation in 2020-04-28 01:41:00 96 /min University Arterial blood by [facility] Pulse oximetry Branch Procedures Procedure Date / Time Performed Performing Clinician Sourrivka e URINALYSIS 2020-04-30 04:18:00 Anai Tapia [facility] COMP. METABOLIC PANEL 2020-04-30 04:16:00 Anai Tapia [facility] ([id number]) [facility] CBC WITH DIFF 2020-04-30 04:16:00 Anai Tapia [facility] POCT FLU A AND B 2020-04-28 01:48:00 Darleen [facility] (MOLECULAR) [facility] COVID-19 (MOLECULAR 2020-04-28 01:45:00 Mary Morejon [facility] TESTING [facility] NUCLEIC ACID AMPLIFICATION) POCT GRP A STREP 2020-04-28 01:42:00 Darleen [facility] (MOLECULAR) [facility] Encounters Start End Encounter Admission Attending Care Care Encounter Source Date/Time Date/Time Type Type Clinicians Facility Department ID 2021-04-20 Emergency [facility] [id number] [facility] 2020-04-29 2020-04-30 Emergency [facility] [id number] Univers 20:43:00 00:21:00 Anai Alicia [id number] ity of [place] [id number] [facility] [id number] [facility] 084 Branch 2020-04-27 2020-04-27 Urgent Provider, [facility] [id number] Univers 19:40:32 19:58:01 Care Mary Morejon [facility] [id number] ity of [place] [id number] Wilber as Professio [id number] [facility] [address] 2020-04-27 2020-04-27 Outpatient R DARLEEN [facility] [id number] Univers 19:40:00 19:40:00 MARY jackson [facility] 2020-01-09 2020-01-09 Outpatient FADY GRIGGS [id number] [place] 12:29:00 12:29:00 [place] [id number] da [facility] 2014-08-22 2014-08-22 Jb CARRILLO [facility] [id number] [place] 03:07:00 04:04:00 MARIELOS [facility] Results Test Description Test Time Test Comments Results Result Comments Source COMP. METABOLIC PANEL (26095) 2020-04-30 05:20:00 Test Item Value Reference Range Interpretation Comme nts NA (test code = 6682077311) 134 mmol/L 135-145 L K (test code = 0700163007) 3.9 mmol/L 3.5-5 CL (test code = 8834382840) 101 mmol/L 98-108 CO2 TOTAL (test code = 9714910129) 25 mmol/L 23-31 AGAP (test code = 1707776507) 2-16 BUN (test code = 6989525441) 17 mg/dL 7-23 GLUCOSE (test code = 9947724223) 87 mg/dL 70-110 CREATININE (test code = 0.66 mg/dL 0.5-1.04 8970113851) TOTAL BILI (test code = 0.5 mg/dL 0.1-1.0 6164154218) CALCIUM (test code = 4166594210) 9.5 mg/dL 8.6-10.6 T PROTEIN (test code = 9119715287) 7.6 g/dL 6.3-8.2 ALBUMIN (test code = 8260679816) 4.5 g/dL 3.5-5 ALK PHOS (test code = 0975389732) 57 U/L 34-122 ALTv (test code = 1742-6) 7 U/L 5-35 AST(SGOT) (test code = 2369815881) 18 U/L 13-40 eGFR Calculation (Non- mL/min/1.73m2 [facility]) (test code = 4976204662) eGFR Calculation ( mL/min/1.73m2 [facility]) (test code = 5027555439) ELSA (test code = ELSA) Association of [...] tests). Lab Interpretation (test code = Abnormal 14447-2) [facility] Test Item Value Reference Range Interpretation Comments APPEARANCE (test code = Hazy Clear A 9678809199) COLOR (test code = Yellow Yellow 7195183592) PH (test code = 4.8-8.0 0015206346) SP GRAVITY (test code = 1.003-1.030 9458894341) GLU U QUAL (test code = Normal Normal 7806398444) BLOOD (test code = 2+ Negative A 5447583354) KETONES (test code = Negative Negative 5582732783) PROTEIN (test code = Negative Negative 2887-8) UROBILIN (test code = 2.0 mg/dL Normal A 5853404974) BILIRUBIN (test code = Negative Negative 1258887317) NITRITE (test code = Negative Negative 5841022501) LEUK HAIR (test code = 75/uL Negative A 9875861580) RBC/HPF (test code = See_Comment H [Autom ated message] 9188020880) The system [employer] generated this result transmit ave reference range : 0 - 3 HPF. The refe rence range was not u sed to interpret th is result as normal/abnormal . WBC/HPF (test code = See_Comment H [Autom ated message] 2211435471) The system [employer] generated this result transmit ave reference range : 0 - 5 HPF. The refe rence range was not u sed to interpret th is result as normal/abnormal . BACTERIA (test code = Many Negative A 6187333151) MUCOUS (test code = Moderate Negative LPF A 8483625702) SQ EPITH (test code = HPF 7166198534) Lab Interpretation (test Abnormal code = 34649-7) [facility] WITH [id number] 04:40:00 Test Item Value Reference Range Interpretation Comments WBC (test code = See_Comment [Automated 1690-2) message] The sy stem which generated this [...] (test code = 38.7 fL 39-49.9 L 45561-6) RDW-CV (test code = 11.9 % 12-15.5 L 788-0) PLT (test code = See_Comment H [Automated 777-3) message] The sy stem which generated this result transmitted reference range : 166 - 358 10*3/ ?L. The reference r daniel was not used to interpret this result as normal/abnormal . MPV (test code = 10.0 fL 9.5-12.9 74697-0) NRBC/100 WBC (test See_Comment [Automat ed code = 6346318830) message] The system which generated this result transmitted reference range : 0.0 - 10.0 /100 WBCs. The refer ence range was not u sed to interpret th is result as normal/abnormal . NRBC x10^3 (test code <0.01 See_Comment [Auto mated = 8713049515) message] The s ystem which generated this result transmitted reference range : 10*3/?L. The reference range was not used to interpret this result as normal/abnormal . GRAN MAT (NEUT) % 65.5 % (test code = 770-8) IMM GRAN % (test code 0.30 % = 1934668261) LYMPH % (test code = 22.2 % 736-9) MONO % (test code = 7.8 % 5905-5) EOS % (test code = 3.5 % 713-8) BASO % (test code = 0.7 % 706-2) GRAN MAT x10^3(ANC) 5.86 10*3/uL 1.88-7.09 (test code = 7162022080) IMM GRAN x10^3 (test 0.03 10*3/uL 0-0.06 code = 2796204615) LYMPH x10^3 (test code 1.99 10*3/uL 1.32-3.29 = 731-0) MONO x10^3 (test code 0.70 10*3/uL 0.33-0.92 = 742-7) EOS x10^3 (test code = 0.31 10*3/uL 0.03-0.39 711-2) BASO x10^3 (test code 0.06 10*3/uL 0.01-0.07 = 704-7) Lab Interpretation Abnormal (test code = 49439-6) [facility] NUCLEIC ACID AMPLIFICATION)2020-04-29 10:44:00 Test Item Value Reference Range Interpretation Comments SARS-CoV-2 NAAT (test Not Detected Not Detected code = 70731-6) ELSA (test code = ELSA) [employer] Aptima SARS-CoV-2 Assay is a nucleic acid amplification test intended for the qualitative detection of RNA from SARS-CoV-2 from nasopharyngeal (DRY PRESS OPERATOR HELPER) specimens. ?It is used under Emergency Use [...] indicated. Lab Interpretation Normal (test code = 36181-3) [facility] FLU A AND B (MOLECULAR)2020-04-28 01:58:00 Test Item Value Reference Range Interpretation Comments POCT INFLUENZA A (test code = negative Negative - Negative 3840) POCT INFLUENZA B (test code = negative Negative - Negative 3841) Lab Interpretation (test code = Normal 17451-8) [facility] GRP A STREP (MOLECULAR)2020-04-28 01:52:00 Test Item Value Reference Range Interpretation Comments POCT GP A STREP (test code = negative Negative - Negative 79853-9) Lab Interpretation (test code = Normal 47009-2) [facility]"
[2022-08-31] MEDS ORDERED: DOXYCYCLINE 100 MG CAP PO ONE (11:59)
[2022-08-31 12:17] VITALS: BP 95/68; TEMP 98.6; O2SAT 100
--- NOTE | 2022-09-12 17:03 | ER ---
Nurse's Notes [facility] Name: Hilaria Mendosa Age: 42 yrs Sex: Female : 1980 Arrival Date: 08/31/2022 Time: 11:39 Bed 10 Private MD: Diagnosis: Cellulitis of the Left Lower Leg Presentation: 08/31 11:41 Chief complaint: Patient states: had heather placed on August 19 and needs them kr3 removed, there is some redness noted at the site. Coronavirus screen: Vaccine status: Patient reports being unvaccinated. Ebola Screen: Patient denies travel to an Ebola-affected area in the 21 days before illness onset. Initial Sepsis Screen: Does the patient meet any 2 criteria? No. Patient's initial sepsis screen is negative. Does the patient have a suspected source of infection? No. Patient's initial sepsis screen is negative. Risk Assessment: Do you want to hurt yourself or someone else? Patient reports no desire to harm self or others. Onset of symptoms was August 31, 2022. 11:41 Method Of Arrival: Ambulatory kr3 11:41 Acuity: BHANU 4 kr3 Triage Assessment: 11:47 General: Appears in no apparent distress. comfortable, Behavior is calm, cooperative, kr3 agitated. Historical: - Allergies: 11:46 PENICILLINS; kr3 - PSHx: 11:46 section; ex lap; kr3 - Immunization history:: Adult Immunizations not up to date. - Social history:: Smoking status: Patient reports the use of cigarette tobacco products, denies chronic smoking, but will smoke occasionally. Screenin:59 [facility] ED Fall Risk Assessment (Adult) History of falling in the last 3 months, kc6 including since admission No falls in past 3 months (0 pts) Confusion or Disorientation No (0 pts) Intoxicated or Sedated No (0 pts) Impaired Gait No (0 pts) Mobility Assist Device Used No (0 pt) Altered Elimination No (0 pt) Score/Fall Risk Level 0 - 2 = Low Risk Oriented to surroundings, Maintained a safe environment, Educated pt \T\ family on fall prevention, incl call for assistance when getting out of bed, Assessed \T\ reinforced patient's understanding of fall precautions, Hourly rounding (assess needs \T\ fall precautionary measures) done. Abuse screen: Denies threats or abuse. Denies injuries from another. Nutritional screening: No deficits noted. Tuberculosis screening: No symptoms or risk factors identified. Assessment: 11:56 General: Appears in no apparent distress. comfortable, Behavior is calm, cooperative, kc6 appropriate for age. Pain: Denies pain. Neuro: Deras Agitation-Sedation Scale (RASS): 0 - Alert and Calm Level of Consciousness is awake, alert, obeys commands, Oriented to person, place, time, situation, Appropriate for age. Cardiovascular: Capillary refill < 3 seconds. Respiratory: Airway is patent Trachea midline Respiratory effort is even, unlabored, Respiratory pattern is regular, symmetrical. GI: No signs and/or symptoms were reported involving the gastrointestinal system. : No signs and/or symptoms were reported regarding the genitourinary system. EENT: No signs and/or symptoms were reported regarding the EENT system. Derm: Skin is intact, Skin is pink, warm \T\ dry. heather located to the lower left outer leg. Musculoskeletal: No signs and/or symptoms reported regarding the musculoskeletal system. Circulation, motion, and sensation intact. Capillary refill < 3 seconds, Range of motion: intact in all extremities. Vital Signs: 11:41 BP 95 / 68; Pulse 83; Resp 18; Temp 98.6; Pulse Ox 100% on R/A; Weight 56.7 kg; Height kr3 5 ft. 3 in. ; Pain 0/10; 11:41 Body Mass Index 22.14 (56.70 kg, 160.02 cm) kr3 11:41 Pain Scale: Adult kr3 ED Course: 11:39 Patient arrived in ED. mr 11:41 Arash Morley PA is PHCP. [facility] 11:41 Jesús Palacios MD is Attending Physician. jmm 11:46 Triage completed. kr3 11:47 Arm band placed on right wrist. Patient placed in an exam room, on a stretcher. kr3 11:51 Demetria Maldonado, ANYI is Primary Nurse. kc6 11:59 Patient has correct armband on for positive identification. Placed in gown. Call light kc6 in reach. Side rails up X 1. Adult w/ patient. 12:09 No provider procedures requiring assistance completed. Patient did not have IV access kc6 during this emergency room visit. Administered Medications: 11:57 Drug: Doxycycline PO 100 mg Route: PO; kr3 12:10 Follow up: Response: No adverse reaction kc6 Medication: 12:10 VIS not applicable for this client. kc6 Outcome: 12:00 Discharge ordered by . lani 12:09 Discharged to home ambulatory, with family. kc6 12:09 Condition: stable 12:09 Discharge instructions given to patient, Instructed on discharge instructions, follow up and referral plans. medication usage, Demonstrated understanding of instructions, follow-up care, medications, Prescriptions given X 1. 12:10 Patient left the ED. kc6 Signatures: Arash Morley PA PA jmm Rivera, Mary mr Ruby, Renate, RN RN kr3 Demetria Maldonado RN RN kc6
--- NOTE | 2022-09-12 17:03 | EDPHYS ---
Physician Documentation [facility] Name: Hilaria Mendosa Age: 42 yrs Sex: Female : 1980 Arrival Date: 08/31/2022 Time: 11:39 Bed 10 Private MD: ED Physician Jesús Palacios HPI: 08/31 11:53 This 42 yrs old Female presents to ER via Ambulatory with complaints of Staple jmm Removal. 11:53 The patient has sutures on the left leg. This is a 42 year old female that presents ot jmm the ED 12 days after laceration repair. States the wound is now painful. . Historical: - Allergies: 11:46 PENICILLINS; kr3 - PSHx: 11:46 section; ex lap; kr3 - Immunization history:: Adult Immunizations not up to date. - Social history:: Smoking status: Patient reports the use of cigarette tobacco products, denies chronic smoking, but will smoke occasionally. ROS: 11:53 Constitutional: Negative for fever, chills, and weight loss, Cardiovascular: Negative jmm for chest pain, palpitations, and edema, Respiratory: Negative for shortness of breath, cough, wheezing, and pleuritic chest pain. 11:53 Skin: Positive for erythema, laceration(s). 11:53 All other systems are negative. Exam: 11:53 Constitutional: This is a well developed, well nourished patient who is awake, alert, jmm and in no acute distress. Head/Face: atraumatic. Eyes: EOMI, no conjunctival erythema appreciated ENT: Moist Mucus Membranes Neck: Trachea midline, Supple Chest/axilla: Normal chest wall appearance and motion. Cardiovascular: Regular rate and rhythm. No edema appreciated Respiratory: Normal respirations, no respiratory distress appreciated Abdomen/GI: Non distended Back: Normal ROM 11:53 Skin: erythema noted to the left lower leg surrounding the laceration. ttp, no purulent drainage. . 11:53 Neuro: Orientation: is normal, Mentation: is normal, Memory: is normal. 11:53 Psych: Behavior/mood is pleasant, cooperative. Vital Signs: 11:41 BP 95 / 68; Pulse 83; Resp 18; Temp 98.6; Pulse Ox 100% on R/A; Weight 56.7 kg; Height kr3 5 ft. 3 in. ; Pain 0/10; 11:41 Body Mass Index 22.14 (56.70 kg, 160.02 cm) kr3 11:41 Pain Scale: Adult kr3 MDM: 11:41 Patient medically screened. [facility] 11:57 Data reviewed: vital signs, nurses notes. I considered the following discharge jm prescriptions or medication management in the emergency department Medications were administered in the Emergency Department. See MAR. Counseling: I had a detailed discussion with the patient and/or guardian regarding: the historical points, exam findings, and any diagnostic results supporting the discharge/admit diagnosis, the need for outpatient follow up, to return to the emergency department if symptoms worsen or persist or if there are any questions or concerns that arise at home. ED course: Wound appears to have developed infection. Distal staple removed. Patient given oral antibiotics. Patient advised to return to the ED in 2 to 3 days for wound reevaluation. . Administered Medications: 11:57 Drug: Doxycycline PO 100 mg Route: PO; kr3 12:10 Follow up: Response: No adverse reaction kc6 Disposition: 16:52 Co-signature as Attending Physician, Jesús Palacios MD I reviewed the patient's care rt provided by the Advanced Practice Provider and agree with the diagnosis and treatment plan. Disposition Summary: 08/31/22 12:00 Discharge Ordered Location: Home [facility] Condition: Stable [facility] Diagnosis - Cellulitis of the Left Lower Leg [facility] Followup: [facility] - With: Private Physician - When: 2 - 3 days - Reason: Recheck today's complaints, Continuance of care, Re-evaluation by your physician Discharge Instructions: - Discharge Summary Sheet [facility] - Cellulitis, Adult [facility] Forms: - Medication Reconciliation Form [facility] - Thank You Letter [facility] - Antibiotic Education [facility] - Prescription Opioid Use [facility] Prescriptions: - Doxycycline Hyclate 100 mg Oral Tablet - take 1 tablet by ORAL route every 12 hours; 20 tablet; Refills: 0, Product [facility] Selection Permitted Signatures: Arash Morley PA PA jmm Reid, Kelley, RN RN kr3 Jesús Palacios MD MD rt Demetria Maldonado RN kc6
== END 2022-08-31 12:10 | disposition home or self-care (01) ==
LOC: ER 11:35
DX: L03.116 Cellulitis of left lower limb (principal); Z88.0 Allergy status to penicillin; F17.210 Nicotine dependence, cigarettes, uncomplicated
CPT/HCPCS: 99283